=== PATIENT | female | born 1995 | race Two or more races ===

== ENCOUNTER 2023-01-03 06:00 | Day surgery (SDC) | payer OTHER | END 2023-01-03 13:15 | disposition home or self-care (01) | LOC: AMB-ENDOS 06:00 | PROVIDERS: ATTEND Colon & Rectal Surgery | DX: K62.1 Rectal polyp (principal); K57.30 Diverticulosis of large intestine without perforation or abscess without bleeding; K64.8 Other hemorrhoids; Z20.822 Contact with and (suspected) exposure to COVID-19 ==